=== PATIENT | female | born 1935 | race Caucasian/White ===

== ENCOUNTER 2017-12-15 15:17 | Outpatient (CLI) | payer MEDICARE ==
--- NOTE | 2017-12-15 17:28 | ULT ---
VENOUS DOPPLER ULTRASOUND RIGHT LOWER EXTREMITY: Date: 12/15/17 HISTORY: 82-year-old female with right lower extremity pain and edema. TECHNIQUE: Cisse scale ultrasound with color flow and spectral Doppler imaging of the deep venous systems of the right lower extremity is performed. FINDINGS: There is good flow, compression, and augmentation noted in the right common femoral, femoral, deep fe moral, popliteal, posterior tibial, and greater saphenous veins. IMPRESSION: No evidence of deep venous thrombosis in the right lower extremity. POS: [facility]
== END 2017-12-15 15:18 | disposition home or self-care (01) ==
LOC: SCSULT 15:17
PROVIDERS: ATTEND Family Medicine
DX: M79.604 Pain in right leg (principal)

== ENCOUNTER 2018-05-22 12:39 | Emergency (ER) | payer MEDICARE ==
[2018-05-22 13:37] LABS: #Basophils 0.1 thou/uL (0.0-0.2); #Eosinphils 0.1 thou/uL (0.0-0.7); #Lymphocytes 2.3 thou/uL (1.20-3.40); #Monocytes 0.6 thou/uL (0.11-0.59); #Neutrophils 3.1 thou/uL (1.40-6.50); %Basophils 0.8 % (0.0-1.0); %Eosinophils 1.3 % (0.0-10.0); %Lymphocytes 37.5 % (21.0-51.0); %Monocytes 9.6 % (0.0-10.0); %Neutrophils 50.7 % (42.0-75.0); Hemoglobin 14.1 g/dL (12.0-16.0); Mean Corpuscular Hemoglobin 30.2 pg (27.0-31.0); Mean Corpuscular Volume 91.6 fL (78.0-98.0); Mean Platelet Volume 5.2 fL (7.4-10.4); Platelet Count 239 thou/uL (130-400); RBC Distribution Width 11.5 % (11.5-14.5); Red Blood Cell (RBC) Count 4.66 mill/uL (4.20-5.40); White Blood Cell (WBC) Count 6.2 thou/uL (4.8-10.8)
[2018-05-22 13:41] LABS: INR-International Normal Ratio 0.9; PTT 24.5 SEC (22.9-36.1); Prothrombin Time 12.6 SEC (12.0-14.7)
[2018-05-22 13:50] LABS: ALT (SGPT) 19 U/L (8-55); AST (SGOT) 25 U/L (5-34); Albumin 4.3 g/dL (3.4-4.8); Alkaline Phosphatase 66 U/L (40-150); Anion Gap 12 mmol/L (10-20); BUN (Urea Nitrogen) 15 mg/dL (9.8-20.1); Calc. Creatinine Clearance 0 mL/min (70-130); Calcium 10.9 mg/dL (7.8-10.44); Carbon Dioxide 30 mmol/L (23-31); Chloride 104 mmol/L (98-107); Estimated GFR-MDRD 69; Globulin 2.8 g/dL (2.4-3.5); Glucose 90 mg/dL (83-110); Potassium 3.7 mmol/L (3.5-5.1); Protein, Total 7.1 g/dL (6.0-8.3); Sodium 142 mmol/L (136-145)
== END 2018-05-22 15:34 | disposition short-term general hospital (02) ==
LOC: SCSER 12:39
DX: G45.9 Transient cerebral ischemic attack, unspecified (principal); Z79.899 Other long term (current) drug therapy
CPT/HCPCS: 80053; 84484; 85025; 85610; 85730; 93005